=== PATIENT | female | born 1995 | race African-American/Black ===

== ENCOUNTER 2020-04-16 20:27 | Emergency (ER) | payer SELFPAY ==
--- NOTE | 2020-04-16 21:11 | ER Document Report ---
ED Medical Screen (RME) - General Chief Complaint: Chest Pain Stated Complaint: CHEST PAIN, LEFT ARM PAIN, LEFT BACK PAIN, HEADACH Time Seen by Provider: 04/16/20 21:04 Mode of Arrival: Ambulatory Information source: Patient Notes: HPI; 24-year-old female presents to the emergency room complaining of left-sided chest pain radiating to left arm and left shoulder. She denies any trauma or injury. States it started yesterday afternoon describes it as a constant throbbing pain. Has tried taking Advil and Midol without relief. Patient is right-handed. PE: Alert and oriented x3. Mild distress noted. Lungs: Clear to auscultation without rales, rhonchi, wheezes. Heart: Regular rate and rhythm without murmurs, rubs, gallops. Nontender to palpation of the chest. Tenderness on palpation to the anterior left shoulder. No obvious deformity palpated. Painful range of motion with abduction and adduction to the left shoulder. I have greeted and performed a rapid initial assessment of this patient. A comprehensive ED assessment and evaluation of the patient, analysis of test results and completion of the medical decision making process will be conducted by additional ED providers. I have specifically instructed the patient or family members with the patient to immediately return to any nursing staff should anything change in the patient's condition or with their chief complaint. . TRAVEL OUTSIDE OF THE [place] IN LAST 30 DAYS: No Past Medical History - Social History Chew tobacco use (# tins/day): No Frequency of alcohol use: None Drug Abuse: None Physical Exam - Vital signs Vitals: Temp Pulse Resp BP Pulse Ox 99.5 F 77 16 121/65 100 04/16/20 20:48 04/16/20 20:48 04/16/20 20:48 04/16/20 20:48 04/16/20 20:48 Course - Vital Signs Vital signs: Temp Pulse Resp BP Pulse Ox 99.5 F 77 16 121/65 100 04/16/20 20:48 04/16/20 20:48 04/16/20 20:48 04/16/20 20:48 04/16/20 20:48
[2020-04-16 21:35] LABS: ABSOLUTE EOSINOPHILS # (AUTO) 0.1 10^3/uL (0.0-0.6); ABSOLUTE LYMPHOCYTES (AUTO) 0.6 10^3/uL (0.5-4.7); ABSOLUTE MONOCYTES (AUTO) 0.3 10^3/uL (0.1-1.4); ABSOLUTE NEUT (AUTO) 4.4 10^3/uL (1.7-8.2); BASOPHILS % (AUTO) 0.3 % (0-2); EOSINOPHILS % (AUTO) 1.4 % (0-6); HEMATOCRIT 36.5 % (36.0-47.0); HEMOGLOBIN 12.4 g/dL (12.0-15.5); MEAN CORPUSCULAR HEMOGLOBIN 30.7 pg (27.0-33.4); MEAN CORPUSCULAR HGB CONC 33.9 g/dL (32.0-36.0); MEAN CORPUSCULAR VOLUME 91 fl (80-97); MONOCYTES % (AUTO) 5.9 % (3-13); PLATELET COUNT 290 10^3/uL (150-450); RED BLOOD COUNT 4.03 10^6/uL (3.72-5.28); RED CELL DISTRIBUTION WIDTH 13.5 % (11.5-14.0); SEGMENTED NEUTROPHILS % (AUTO) 81.4 % (42-78); TOTAL CELLS COUNTED % (AUTO) 100 %; WHITE BLOOD COUNT 5.4 10^3/uL (4.0-10.5)
[2020-04-16 21:57] LABS: ALBUMIN 4.1 g/dL (3.5-5.0); ALKALINE PHOSPHATASE 47 U/L (38-126); ANION GAP 8 (5-19); ASPARTATE AMINO TRANSFERASE 33 U/L (14-36); BILIRUBIN,TOTAL 0.4 mg/dL (0.2-1.3); BLOOD UREA NITROGEN 17 mg/dL (7-20); CALCIUM 9.5 mg/dL (8.4-10.2); CARBON DIOXIDE 27 mmol/L (22-30); CHLORIDE 101 mmol/L (98-107); CREATINE KINASE 80 U/L (30-135); GLUCOSE 99 mg/dL (75-110); POTASSIUM 4.1 mmol/L (3.6-5.0); TOTAL PROTEIN 7.4 g/dL (6.3-8.2)
--- NOTE | 2020-04-16 22:02 | RADIOLOGY REPORT (SQ) ---
EXAM DESCRIPTION: XR SHOULDER 2 OR MORE VIEWS COMPLETED DATE/TME: 04/16/2020 21:07 CLINICAL HISTORY: 24 years, Female, pain COMPARISON: None. NUMBER OF VIEWS: 3 TECHNIQUE: 3 view left shoulder LIMITATIONS: None. FINDINGS: Negative for acute fracture or dislocation. Soft tissues are unremarkable. Joint spaces are preserved IMPRESSION: Negative exam copyright 2011 [employer]- All Rights Reserved
--- NOTE | 2020-04-16 22:05 | RADIOLOGY REPORT (SQ) ---
EXAM DESCRIPTION: XR CHEST 2 VIEWS COMPLETED DATE/TME: 04/16/2020 21:07 CLINICAL HISTORY: 24 years, Female, chest pain COMPARISON: None. NUMBER OF VIEWS: TECHNIQUE: LIMITATIONS: None. FINDINGS: No evidence of pulmonary infiltrate or pleural effusion. The heart and mediastinum are unremarkable. Pulmonary vascularity appears normal. There is evidence of prior sternotomy. IMPRESSION: No acute finding. copyright 2010 [email or web address]- All Rights Reserved
[2020-04-16 22:09] LABS: TROPONIN I < 0.012 ng/mL
[2020-04-16] MEDS ORDERED: IBUPROFEN 600 MG TABLET PO ONE (22:23)
[2020-04-16] MEDS ORDERED: CYCLOBENZAPRINE HCL 10 MG TABLET PO ONE (22:23)
--- NOTE | 2020-04-16 22:41 | EKG REPORT ---
SEVERITY:- NORMAL ECG - SINUS RHYTHM : Confirmed by: Ignacio Ly MD 16-Apr-2020 22:40:56
[2020-04-16 22:56] VITALS: BP 127/69
--- NOTE | 2020-04-17 00:22 | ER Document Report ---
Entered by MARISA FAGAN SCRIBE 04/16/20 7061 Acting as scribe for:VERONIKA BENAVIDES IV, MD ED General - General Chief Complaint: Chest Pain Stated Complaint: CHEST PAIN, LEFT ARM PAIN, LEFT BACK PAIN, HEADACH Time Seen by Provider: 04/16/20 21:04 Primary Care Provider: MANDA KENDRICK MD [HONORARY] - Follow up as needed Mode of Arrival: Ambulatory Information source: Patient Notes: This 24 year old female patient with no significant past medical history presents to the ED today with complaints of left-sided reproducible chest pain that started around 1900 yesterday evening. Patient states that the pain initially started on the right side of her back and then radiated to her chest. She states that the pain is now in her left shoulder. She notes that the pain is worse with movement and relieved mildly by lying on the right side of her body. Denies history of sickle cell disease. Denies any known COVID exposure. Patient is right hand dominant. TRAVEL OUTSIDE OF THE [place] IN LAST 30 DAYS: No Past Medical History - General Information source: Patient - Social History Smoking Status: Never Smoker Cigarette use (# per day): No Chew tobacco use (# tins/day): No Smoking Education Provided: No Frequency of alcohol use: None Drug Abuse: None Family History: Reviewed & Not Pertinent Patient has suicidal ideation: No Patient has homicidal ideation: No Review of Systems - Review of Systems Constitutional: No symptoms reported EENT: No symptoms reported Cardiovascular: See HPI, Chest pain - reproducible Respiratory: No symptoms reported Gastrointestinal: No symptoms reported Genitourinary: No symptoms reported Female Genitourinary: No symptoms reported Musculoskeletal: See HPI, Joint pain - Left shoulder Skin: No symptoms reported Hematologic/Lymphatic: No symptoms reported Neurological/Psychological: No symptoms reported -: Yes All other systems reviewed and negative Physical Exam - Vital signs Vitals: Temp Pulse Resp BP Pulse Ox 99.5 F 77 16 121/65 100 04/16/20 20:48 04/16/20 20:48 04/16/20 20:48 04/16/20 20:48 04/16/20 20:48 Interpretation: Normal - General General appearance: Alert In distress: None - HEENT Head: Normocephalic, Atraumatic Eyes: Normal Pupils: PERRL - Respiratory Respiratory status: No respiratory distress Chest status: Nontender Breath sounds: Normal Chest palpation: Normal - Cardiovascular Rhythm: Regular Heart sounds: Normal auscultation Murmur: No Friction rub: No Gallop: None auscultated - Abdominal Inspection: Normal Distension: No distension Bowel sounds: Normal Tenderness: Nontender - Abdomen soft Organomegaly: No organomegaly - Back Back: Other - Muscle spasms noted to left trapezius - Extremities General upper extremity: Normal inspection General lower extremity: Normal inspection - Neurological Neuro grossly intact: Yes Orientation: AAOx4 [place] Coma Scale Eye Opening: Spontaneous Naz Coma Scale Verbal: Oriented Naz Coma Scale Motor: Obeys Commands [place] Coma Scale Total: 15 - Psychological Associated symptoms: Normal affect, Normal mood - Skin Skin Temperature: Warm Skin Moisture: Dry Skin Color: Normal Course - Re-evaluation Re-evalutation: 04/16/20 22:22 Results of ED MSE discussed with patient. Questions were answered prior to discharge. Emergency signs and symptoms, reasons to return to the emergency department discussed with patient. - Vital Signs Vital signs: Temp Pulse Resp BP Pulse Ox 98.9 F 72 16 127/69 H 100 04/16/20 22:54 04/16/20 22:54 04/16/20 22:54 04/16/20 22:54 04/16/20 22:54 - Laboratory Result Diagrams: 04/16/20 21:20 04/16/20 21:20 Laboratory results interpreted by me: 04/16/20 04/16/20 21:20 21:20 Lymph % (Auto) 11.0 L Seg Neutrophils % 81.4 H Sodium 136.0 L - Diagnostic Test Radiology reviewed: Reports reviewed - EKG Interpretation by Me Additional EKG results interpreted by me: 04/16/20 22:24 EKG obtained on 04/16/2020 at 2034 hrs. was interpreted by this MD. Findings normal sinus rhythm, rate 74, normal axis, P waves preceding QRS complexes, QRS complexes appear narrow, there are no obvious patterns of ST segment elevation or depression present to suggest acute myocardial ischemia or infarction. Impression normal sinus rhythm with nonspecific ST segments. Discharge - Discharge Clinical Impression: Strain of left trapezius muscle Qualifiers: Encounter type: initial encounter Qualified Code(s): S46.812A - Strain of other muscles, fascia and tendons at shoulder and upper arm level, left arm, initial encounter Condition: Stable Disposition: HOME, SELF-CARE Additional Instructions: Use sling as needed for comfort over the next 5 to 7 days. Try to put your neck and shoulder through some gentle range of motion stretching exercises over the next several days. You can use [id number] lidocaine patches, applying them directly to the area of the muscle that is causing your pain. You can also use microwave heating pads that put out a moist heat that often helps to alleviate muscle spasm. Return to the Emergency Department without delay if any worse. HOME CARE INSTRUCTIONS & INFORMATION: Thank you for choosing us for your medical needs. We hope you're satisfied with the care you received. After you leave, you must properly care for your problem and, at the same time, observe its progress. Any condition can change. Some illnesses can change rapidly over hours or days. If your condition worsens, return to the Emergency Department or see your physician promptly. ABOUT YOUR X-RAYS AND EKG'S: If you had an EKG or X-rays taken, they have been read by the Emergency Physician. The X-rays and EKG's will also be read by a Radiologist or Condenser Tube Tender within 24 hours. If discrepancies are noted, you will be notified by telephone. Please be certain the ED has a correct telephone number & address where you can be reached. Also, realize that some fractures or abnormalities do not show up on initial X-rays. If your symptoms continue, see your physician. ABOUT YOUR LABORATORY TEST: If you had laboratory tests, the results have been reviewed by the Emergency Physician. Some test results (for example cultures) may not be available for several days. You will be contacted if any test result shows you need additional treatment. Please be certain the ED has a correct telephone number and address where you can be reached. ABOUT YOUR MEDICATIONS: You will receive instructions on how to take your medicine on the prescription label you receive. Additional information may be provided by the Pharmacy. If you have questions afterwards, call the ED for clarification or further instructions. Some prescribed medications may cause drowsiness. Do not perform tasks such as driving a car or operating machinery without consulting your Pharmacist. If you feel you need a refill of pain medication, your condition will need re-evaluation. Please do not call for a refill of any medication. ABOUT YOUR SIGNATURE: Signature of this document acknowledges to followin. Understanding that you received emergency treatment and that you may be released before al medical problems are known or treated. Please be certain the ED has a correct phone number & address where you can be reached. 2. Acknowledgement that you will arrange for follow-up care as recommended. 3. Authorization for the Emergency Physician to provide information to your follow-up Physician in order to maximize your care. AT ANY TIME, IF YOUR SYMPTOMS CHANGE SIGNIFICANTLY OR WORSEN OR YOU DEVELOP NEW SYMPTOMS, RETURN TO THE EMERGENCY DEPARTMENT IMMEDIATELY FOR RE-EVALUATION. OUR GOAL IS TO PROVIDE EXCELLENT MEDICAL CARE! WE HOPE THAT WE HAVE MET YOUR EXPECTATIONS DURING YOUR EMERGENCY DEPARTMENT VISIT AND THAT YOU FEEL YOU HAVE RECEIVED EXCELLENT CARE! Muscle Relaxers Muscle relaxing medications are usually prescribed for acute muscle spasm or injury to the neck and back. They are often combined with antiinflammatory pain medication for increased relief. You may stop the muscle relaxer when the pain and stiffness have improved. Start the medication again if spasms recur. Muscle relaxers may cause drowsiness, especially with the first dose. Do not operate machinery or drive while under the effects of the medication. Most muscle relaxers last up to 24 hours. Do not combine the medication with alcohol. Prescriptions: Cyclobenzaprine HCl [Flexeril 10 mg Tablet] 10 mg PO Q8HP PRN #21 tablet PRN Reason: muscle spasm Ibuprofen [Motrin 600 Mg Tablet] 600 mg PO TID #21 tablet Referrals: MANDA KENDRICK MD [HONORARY] - Follow up as needed I personally performed the services described in the documentation, reviewed and edited the documentation which was dictated to the scribe in my presence, and it accurately records my words and actions.
== END 2020-04-16 22:54 | disposition home or self-care (01) ==
LOC: ER 20:27
DX: S29.012A Strain of muscle and tendon of back wall of thorax, initial encounter (principal); X58.XXXA Exposure to other specified factors, initial encounter; R07.9 Chest pain, unspecified; M25.512 Pain in left shoulder; M62.830 Muscle spasm of back
CPT/HCPCS: 36415; 71046; 80053; 82550; 82553; 84484; 84703; 85025; 93005; 93010; 99285